=== PATIENT | male | born 1970 | race Caucasian/White ===

== ENCOUNTER → 2021-09-19 11:46 | Outpatient (CLI) | payer OTHER, SELFPAY ==
--- NOTE | ~2021-09-19 | XR_ITS ---
EXAMINATION: XR chest 2V EXAM DATE: 09/19/2021 12:12 INDICATION: Bronchitis. congestion; cough x 2 weeks; covid + 09/09/2021; no surgery; non smoker; no c ancer TECHNIQUE: Frontal and lateral projections of the chest obtained and reviewed. There is no prior mary ann dy for comparison. FINDINGS: Moderate amount of bilateral airspace disease, density and appearance is consistent with s ubacute COVID pneumonia. No pneumothorax or pleural effusion. Cardiomediastinal silhouette is normal. There are no osseous abnormalities identified. IMPRESSION: Moderate amount of airspace disease probably subacute COVID pneumonia. Reviewed, dictated and finalized at location A. L RESERVATIONIST IMPRESSION: Moderate amount of airspace disease probably subacute COVID pneumon ia.
== END ==
PROVIDERS: PCP Internal Medicine; Visit Provider Internal Medicine
DX: J40 Bronchitis, not specified as acute or chronic (principal); R91.8 Other nonspecific abnormal finding of lung field
CPT/HCPCS: 71046